=== PATIENT | female | born 1970 | race Caucasian/White ===

== ENCOUNTER → 2018-06-30 | Outpatient (CLI) | payer BC ==
--- NOTE | 2018-06-30 12:03 | US ---
EXAMINATION TYPE: US thyroid st tissue head/neck DATE OF EXAM: 06/30/2018 COMPARISON: NONE CLINICAL HISTORY: E04.0 GOITER,SIMPLE. Goiter GLAND SIZE: Right Lobe: 5.5 x 1.9 x 2.2 cm Overall Parenchyma: heterogenous Left Lobe: 5.4 x 1.6 x 2.1 cm Overall Parenchyma: heterogeneous Isthmus Thickness: 0.4 cm NODULES RIGHT: # of nodules measured on right: 1 1. 0.3 X 0.2 x 0.3 cm calcified nodule at the lower pole with well-defined margins; . This nodule is wider than tall and shows no intranodular vascularity. Prior size: 0.3 LEFT: # of nodules measured on left: 1 1. 0.9 X 0.8 x 0.9 cm mixed nodule at the lateral pole with well-defined margins; . This nodule i s wider than tall and shows no intranodular vascularity. Lesion shows a generally hypoechoic focus wi th echogenic area, findings may represent colloid cyst and shows a similar appearance to prior exam. 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 Heterogeneous gland may represent a nodu le goiter.
== END | disposition home or self-care (01) ==
LOC: RADUSWWP 09:10
PROVIDERS: ATTEND Internal Medicine
DX: E04.0 Nontoxic diffuse goiter (principal)
CPT/HCPCS: 76536; 84443

== ENCOUNTER → 2018-11-02 | Outpatient (CLI) | payer BC ==
[2018-11-02 16:33] LABS: Albumin 4.5 g/dL (3.80-4.90); Albumin/Globulin Ratio 1.88 (1.60-3.17); Anion Gap 8.2 mmol/L (4.00-12.00); Calcium 9.6 mg/dL (8.7-10.3); Carbon Dioxide 25.8 mmol/L (21.6-31.8); Globulin 2.4 g/dL (1.6-3.3); Potassium 5.2 mmol/L (3.5-5.5); Total Bilirubin 0.5 mg/dL (0.3-1.2); Total Protein 6.9 g/dL (6.2-8.2)
[2018-11-02 17:17] LABS: Hemoglobin A1C 6.5 % (4.0-6.0)
== END | disposition home or self-care (01) ==
LOC: LABWHC1 09:00
PROVIDERS: ATTEND Internal Medicine
DX: E11.9 Type 2 diabetes mellitus without complications (principal); E04.0 Nontoxic diffuse goiter
CPT/HCPCS: 36415; 80053; 80061; 82043; 82570; 83036; 84443

== ENCOUNTER → 2020-03-21 | Outpatient (CLI) | payer BC ==
[2020-03-21 18:15] LABS: Hemoglobin A1C 8.6 % (4.0-6.0)
[2020-03-21 18:52] LABS: African American GFR (CKD) 87.6 (60.0-200.0); Albumin 4.4 g/dL (3.80-4.90); Albumin/Globulin Ratio 1.91 (1.60-3.17); Anion Gap 9.9 mmol/L (4.00-12.00); BUN/Creat Ratio 16.67 Ratio (12.00-20.00); Calcium 9.6 mg/dL (8.7-10.3); Carbon Dioxide 27.1 mmol/L (21.6-31.8); Globulin 2.3 g/dL (1.6-3.3); Non-African American GFR(CKD) 75.6 (60.0-200.0); Potassium 4.7 mmol/L (3.5-5.5); Total Bilirubin 0.5 mg/dL (0.3-1.2); Total Protein 6.7 g/dL (6.2-8.2)
== END | disposition home or self-care (01) ==
LOC: LABWHC1 08:51
PROVIDERS: ATTEND Internal Medicine
DX: E11.9 Type 2 diabetes mellitus without complications (principal); E04.0 Nontoxic diffuse goiter
CPT/HCPCS: 36415; 80053; 82043; 82570; 83036; 84443

== ENCOUNTER 2020-03-25 18:37 | Emergency (ER) | payer BC ==
[2020-03-25 18:50] VITALS: RESP 18; TEMP 98.4
[2020-03-25 19:49] LABS: Basophils % (A) 0 %; Eosinophils # (A) 0.4 k/uL (0-0.7); Eosinophils % (A) 4 %; HCT 39.6 % (34.0-46.0); HGB 14.2 gm/dL (11.4-16.0); Lymphocytes # (A) 2.3 k/uL (1.0-4.8); Lymphocytes % (A) 27 %; MCH 32.3 pg (25.0-35.0); MCHC 35.8 g/dL (31.0-37.0); MCV 90.2 fL (80.0-100.0); Mean Platelet Volume 7.5; Monocytes # (A) 0.4 k/uL (0-1.0); Monocytes % (A) 4 %; Neutrophils # (A) 5.5 k/uL (1.3-7.7); Neutrophils % (A) 63 %; Platelet Count 218 k/uL (150-450); WBC 8.7 k/uL (3.8-10.6)
[2020-03-25 20:04] LABS: INR 0.9 (<1.2); Partial Thromboplastin Time 22.3 sec (22.0-30.0); Prothrombin Time 9.5 sec (9.0-12.0)
[2020-03-25 20:09] LABS: ALT 50 U/L (4-34); AST 32 U/L (14-36); African American GFR (CKD) >90 (>60 ml/min/1.73 sqM); Alkaline Phosphatase 80 U/L (38-126); Anion Gap 8 mmol/L; Blood Urea Nitrogen 11 mg/dL (7-17); Calcium 9.1 mg/dL (8.4-10.2); Carbon Dioxide 25 mmol/L (22-30); Chloride 102 mmol/L (98-107); Glucose 214 mg/dL (74-99); Lipase 141 U/L (23-300); Non-African American GFR(CKD) >90 (>60 ml/min/1.73 sqM); Sodium 135 mmol/L (137-145); Total Bilirubin 0.3 mg/dL (0.2-1.3); Total Protein 6.5 g/dL (6.3-8.2)
[2020-03-25 20:14] LABS: Appearance,Urine Clear (Clear); Bilirubin,Urine Negative (Negative); Blood,Urine Negative (Negative); Color,Urine Yellow; Glucose,Urine (UA) Negative (Negative); Ketones,Urine Negative (Negative); Leukocyte Esterase,Urine Negative (Negative); Nitrite,Urine Negative (Negative); Protein,Urine Negative (Negative); Specific Gravity,Urine 1.016 (1.001-1.035); Urobilinogen,Urine <2.0 mg/dL (<2.0)
--- NOTE | 2020-03-25 20:57 | CT ---
EXAMINATION TYPE: CT abdomen pelvis w con DATE OF EXAM: 03/25/2020 COMPARISON: None INDICATION: Abdominal pain, distention, bloating DLP: 1680.3 mGycm, Automated exposure control for dose reduction was used. CONTRAST: 100 mL of Isovue 300. Study performed without Oral Contrast TECHNIQUE: Axial images were obtained from above the diaphragm to the pubic rami in the axial plane a t 5 mm thick sections. Reconstructed images are reviewed on the computer in the coronal plane. FINDINGS: Limited CT sections are obtained the lung bases. The lung bases are clear. CT ABDOMEN: Liver: There is moderate fatty infiltration throughout the liver. There is a 1.2 cm area of increased contrast within the left lobe liver could be a hemangioma. Series 201 image 27. Punctate density may be in the anterior left lobe liver. Series 201 image 29. There is a triangular area of increased den sity within the right lobe liver. Series 201 image 37. A 1.4 cm enhancing areas within the left lobe liver. Series 201 image 37. Differential diagnosis would include preserved parenchymal tissue. Neopla sm, while unlikely, cannot be excluded. Spleen: Normal Pancreas: Normal Adrenal glands: The adrenal glands are normal. Gallbladder: Surgically absent Kidneys: No masses are evident. No hydronephrosis is present. No cysts are present. Delayed images were obtained through the kidneys, which remain unremarkable. Aorta: Vascular calcification is within the aorta. Inferior vena cava: Normal. CT PELVIS: Loops of bowel within the abdomen and pelvis are normal. Study is without oral contrast limiting bowel evaluation. Debris is at the level the rectum. Appendix: Normal as visualized. Urinary bladder: Normal. Genitourinary structures: Uterus is normal. Adnexal regions have small follicles. Right ovary may con tain a 1.5 cm cyst. No free fluid is within the pelvis. Osseous structures: No suspicious lytic or sclerotic lesions. IMPRESSIONS: 1. Diffuse fatty infiltration throughout the liver. There are couple of areas of enhancement are pre served. Preserved hepatic parenchymal tissue is favored. Consider correlation with ultrasound. Mass w hile considered less likely is not excluded. 2. No definite etiology for abdominal pain and distention.
--- NOTE | 2020-03-25 22:14 | ED ---
Abdominal Pain HPI - General Chief Complaint: Abdominal Pain Stated Complaint: abd pain/swelling Time Seen by Provider: 03/25/20 18:45 Source: patient Mode of arrival: ambulatory Limitations: no limitations - History of Present Illness Initial Comments: Patient is a 49-year-old female presents emergency room with reported right upper quadrant abdominal pain. She is status post cholecystectomy. States the pain has been present for the past several weeks however is getting worse. She reports to a distended sensation. Pain is worse with eating. By mouth in take has been decreased. Admits to associated nausea without vomiting. Denies any fevers or chills. No cough or hemoptysis. No shortness of breath. Denies ripping or tearing sensation to her back. Denies any changes in her bowel or bladder habits. No concern for . She's her primary care physician who recommended she have an ultrasound. Patient states it is scheduled for the however she can make the pain is getting more severe. She does believe that secondary to her medications. Reports that she took herself off of her metformin for hasn't had any improvement in her symptoms. No other alleviating, precipitating or modifying factors - Related Data Home Medications Medication Instructions Recorded Confirmed sitaGLIPtin PHOS/metFORMIN HCL 1 tab PO DAILY 11/04/18 11/04/18 [Janumet Xr 100-1,000 mg Tablet] Allergies Allergy/AdvReac Type Severity Reaction Status Date / Time narcotics AdvReac vomiting/he Uncoded 03/25/20 18:47 adaches Review of Systems ROS Statement: Those systems with pertinent positive or pertinent negative responses have been documented in the HPI. ROS Other: All systems not noted in ROS Statement are negative. Past Medical History Past Medical History: Diabetes Mellitus Additional Past Medical History / Comment(s): Hx melanoma/leg, History of Any Multi-Drug Resistant Organisms: None Reported Past Surgical History: Cholecystectomy Additional Past Surgical History / Comment(s): melanoma surgery/leg, Past Anesthesia/Blood Transfusion Reactions: No Reported Reaction Past Psychological History: No Psychological Hx Reported Smoking Status: Never smoker Past Alcohol Use History: Rare Past Drug Use History: None Reported General Exam Limitations: no limitations General appearance: alert, in no apparent distress Head exam: Present: atraumatic, normocephalic, normal inspection Eye exam: Present: normal appearance, PERRL, EOMI. Absent: scleral icterus, conjunctival injection, periorbital swelling ENT exam: Present: normal exam, mucous membranes moist Neck exam: Present: normal inspection. Absent: tenderness, meningismus, lymphadenopathy Respiratory exam: Present: normal lung sounds bilaterally. Absent: respiratory distress, wheezes, rales, rhonchi, stridor Cardiovascular Exam: Present: regular rate, normal rhythm, normal heart sounds. Absent: systolic murmur, diastolic murmur, rubs, gallop, clicks GI/Abdominal exam: Present: soft, tenderness (epigastric), normal bowel sounds. Absent: distended, guarding, rebound, rigid Extremities exam: Present: normal inspection, full ROM, normal capillary refill. Absent: tenderness, pedal edema, joint swelling, calf tenderness Back exam: Present: normal inspection Neurological exam: Present: alert, oriented X3, CN II-XII intact Psychiatric exam: Present: normal affect, normal mood Skin exam: Present: warm, dry, intact, normal color. Absent: rash Course Vital Signs 03/25/20 03/25/20 18:43 22:28 Temperature 98.4 F Pulse Rate 55 L 69 Respiratory 18 18 Rate Blood Pressure 142/84 130/91 O2 Sat by Pulse 96 97 Oximetry Medical Decision Making - Medical Decision Making Upon arrival the patient is placed into room 5. A thorough history and physical exam was performed. Laboratory studies were conducted the patient had a CT for abdomen and pelvis performed. Laboratory studies are remarkable for an ALT of 50. Patient is status post cholecystectomy and therefore CT is performed which demonstrates diffuse fatty infiltration of the liver. I discussed results of th e patient. She is refusing anything for pain or nausea at this time. I discussed possible treatment with Carafate however the patient refuses this medication stating that she would rather just "tough it out". Patient will be discharged home and is to follow-up with GI. Return to the emergency room for any new or worsening symptoms. The patient agreed to this. She was discharged home in stable condition. - Lab Data Result diagrams: 03/25/20 19:03/25/20: Lab Results 03/25/20 03/25/20 03/25/20 Range/Units 19: 19: 19: WBC 8.7 (3.8-10.6) k/uL RBC 4.40 (3.80-5.40) m/uL Hgb 14.2 (11.4-16.0) gm/dL Hct 39.6 (34.0-46.0) % MCV 90.2 (80.0-100.0) fL MCH 32.3 (25.0-35.0) pg MCHC 35.8 (31.0-37.0) g/dL RDW 13.0 (11.5-15.5) % Plt Count 218 (150-450) k/uL Neutrophils % 63 % Lymphocytes % 27 % Monocytes % 4 % Eosinophils % 4 % Basophils % 0 % Neutrophils # 5.5 (1.3-7.7) k/uL Lymphocytes # 2.3 (1.0-4.8) k/uL Monocytes # 0.4 (0-1.0) k/uL Eosinophils # 0.4 (0-0.7) k/uL Basophils # 0.0 (0-0.2) k/uL PT 9.5 (9.0-12.0) sec INR 0.9 (<1.2) APTT 22.3 (22.0-30.0) sec Sodium (137-145) mmol/L Potassium (3.5-5.1) mmol/L Chloride (98-107) mmol/L Carbon Dioxide (22-30) mmol/L Anion Gap mmol/L BUN (7-17) mg/dL Creatinine (0.52-1.04) mg/dL Est GFR (CKD-EPI)AfAm (>60 ml/min/1.73 sqM) Est GFR (CKD-EPI)NonAf (>60 ml/min/1.73 sqM) Glucose (74-99) mg/dL Plasma Lactic Acid Raymon (0.7-2.0) mmol/L Calcium (8.4-10.2) mg/dL Total Bilirubin (0.2-1.3) mg/dL AST (14-36) U/L ALT (4-34) U/L Alkaline Phosphatase (38-126) U/L Total Protein (6.3-8.2) g/dL Albumin (3.5-5.0) g/dL Lipase (23-300) U/L Urine Color Yellow Urine Appearance Clear (Clear) Urine pH 7.0 (5.0-8.0) Ur Specific Creighton 1.016 (1.001-1.035) Urine Protein Negative (Negative) Urine Glucose (UA) Negative (Negative) Urine Ketones Negative (Negative) Urine Blood Negative (Negative) Urine Nitrite Negative (Negative) Urine Bilirubin Negative (Negative) Urine Urobilinogen <2.0 (<2.0) mg/dL Ur Leukocyte Esterase Negative (Negative) 03/25/20 03/25/20 Range/Units 19:29 19:29 WBC (3.8-10.6) k/uL RBC (3.80-5.40) m/uL Hgb (11.4-16.0) gm/dL Hct (34.0-46.0) % MCV (80.0-100.0) fL MCH (25.0-35.0) pg MCHC (31.0-37.0) g/dL RDW (11.5-15.5) % Plt Count (150-450) k/uL Neutrophils % % Lymphocytes % % Monocytes % % Eosinophils % % Basophils % % Neutrophils # (1.3-7.7) k/uL Lymphocytes # (1.0-4.8) k/uL Monocytes # (0-1.0) k/uL Eosinophils # (0-0.7) k/uL Basophils # (0-0.2) k/uL PT (9.0-12.0) sec INR (<1.2) APTT (22.0-30.0) sec Sodium 135 L (137-145) mmol/L Potassium 4.0 (3.5-5.1) mmol/L Chloride 102 (98-107) mmol/L Carbon Dioxide 25 (22-30) mmol/L Anion Gap 8 mmol/L BUN 11 (7-17) mg/dL Creatinine 0.68 (0.52-1.04) mg/dL Est GFR (CKD-EPI)AfAm >90 (>60 ml/min/1.73 sqM) Est GFR (CKD-EPI)NonAf >90 (>60 ml/min/1.73 sqM) Glucose 214 H (74-99) mg/dL Plasma Lactic Acid Raymon 1.9 (0.7-2.0) mmol/L Calcium 9.1 (8.4-10.2) mg/dL Total Bilirubin 0.3 (0.2-1.3) mg/dL AST 32 (14-36) U/L ALT 50 H (4-34) U/L Alkaline Phosphatase 80 (38-126) U/L Total Protein 6.5 (6.3-8.2) g/dL Albumin 4.0 (3.5-5.0) g/dL Lipase 141 (23-300) U/L Urine Color Urine Appearance (Clear) Urine pH (5.0-8.0) Ur Specific Creighton (1.001-1.035) Urine Protein (Negative) Urine Glucose (UA) (Negative) Urine Ketones (Negative) Urine Blood (Negative) Urine Nitrite (Negative) Urine Bilirubin (Negative) Urine Urobilinogen (<2.0) mg/dL Ur Leukocyte Esterase (Negative) - EKG Data EKG Comments: EKG demonstrates normal sinus rhythm with a ventricular rate of 74. TN interval 154. QRS 80. QTC of 437. Inverted T-wave in lead V2 and V3. No acute ST segment elevations Disposition Clinical Impression: Abdominal pain Disposition: HOME SELF-CARE Condition: Stable Instructions (If sedation given, give patient instructions): Abdominal Pain (ED) Additional Instructions: Please make an appointment with Dr. Ji for further evaluation. I do recommend an EGD. Return to the emergency department for any new or worsening symptoms Is patient prescribed a controlled substance at d/c from ED?: No Referrals: Rosendo Couch III, MD [Primary Care Provider] - 1-2 days Alvaro Ji MD [STAFF PHYSICIAN] - 1-2 days Time of Disposition: 22:14
[2020-03-25 22:29] VITALS: BP 130/91; PULSE 69
== END 2020-03-25 22:34 | disposition home or self-care (01) ==
LOC: EC 18:37
DX: R10.9 Unspecified abdominal pain (principal); R10.11 Right upper quadrant pain; R11.0 Nausea; R14.0 Abdominal distension (gaseous); K76.0 Fatty (change of) liver, not elsewhere classified; E11.9 Type 2 diabetes mellitus without complications; Z79.84 Long term (current) use of oral hypoglycemic drugs; Z88.5 Allergy status to narcotic agent; Z90.49 Acquired absence of other specified parts of digestive tract; Z85.820 Personal history of malignant melanoma of skin
CPT/HCPCS: 36415; 93005; 80053; 83605; 83690; 85025; 85610; 85730; 81003; 74177; 99284; Q9967

== ENCOUNTER → 2020-04-10 | Outpatient (CLI) | payer BC ==
--- NOTE | 2020-04-10 07:53 | US ---
EXAMINATION TYPE: US abdomen complete DATE OF EXAM: 04/10/2020 COMPARISON: CT March 25, 2020 CLINICAL HISTORY: R10.11 RUQ Pain. Pain exam limited due to body habitus EXAM MEASUREMENTS: Liver Length: 18 cm Gallbladder Wall: Surgically absent cm CBD: .6 cm Spleen: 11.5 cm Right Kidney: 11.4 x 4.8 x 5.6 cm Left Kidney: 10.0 x 6.0 x 4.8 cm Pancreas: Obscured by bowel gas Liver: Upper limits increased attenuation Gallbladder: Surgically absent Evidence for sonographic Walters's sign: No CBD: wnl Spleen: wnl Right Kidney: wnl Left Kidney: wnl Upper IVC: limited Abd Aorta: wnl The visualized liver is markedly heterogeneously hyperechoic. Evaluation for focal mass is suboptimal due to the marked heterogeneity. Liver measures upper limits of normal in size. No intrahepatic duct al dilatation. The intrahepatic portion of the IVC and visualized abdominal aorta are within normal l imits. There is no evidence of shadowing mobile cholelithiasis. Common bile duct is unremarkable. S uboptimal Evaluation the pancreas on images saved secondary to overlying bowel gas per technologist. The spleen is unremarkable. Kidneys are symmetric and free of hydronephrosis. No renal lesions are seen. IMPRESSION: Borderline mild hepatomegaly. Marked fatty infiltration of liver redemonstrated. No acute findings are seen.
== END | disposition home or self-care (01) ==
LOC: RADUSWWP 07:09
PROVIDERS: ATTEND Family Medicine
DX: K76.0 Fatty (change of) liver, not elsewhere classified (principal); R16.0 Hepatomegaly, not elsewhere classified
CPT/HCPCS: 76700

== ENCOUNTER 2020-05-26 06:35 | Day surgery (SDC) | payer BC ==
[2020-05-24 15:58] VITALS: BMI 31.1
[~2020-05-26 06:35] MED LIST: LACTATED RINGERS 1,000 ML IV SCH; LIDOCAINE 1% (10MG/ML) FOR IV START INTRADERMA PRN
[2020-05-26 07:07] VITALS: TEMP 97.6
[2020-05-26] MEDS ORDERED: LIDOCAINE 1% INJ 10MG/ML (20 ML MDV) ONE (07:21)
[2020-05-26] MEDS ORDERED: PROPOFOL 10 MG/ML 20 ML VIAL IV ONE (07:21)
--- NOTE | 2020-05-26 07:38 | P.PCN ---
Date of Procedure: 05/26/20 Procedure(s) Performed: BRIEF HISTORY: Patient is a 50-year-old, pleasant, white female scheduled for an upper endoscopy as a part of evaluation of epigastric discomfort and intermittent nausea and dyspeptic symptoms on and off for the last few months duration. Symptoms began after she was started on metformin and hence discontinued the medication. Recently was given a trial of Prilosec 20 mg daily for a month and symptoms are completely resolved.. PROCEDURE PERFORMED: Esophagogastroduodenoscopy with biopsy. PREOPERATIVE DIAGNOSIS: Epigastric discomfort/intermittent nausea vomiting. IV sedation per anesthesia. PROCEDURE: After informed consent was obtained, the patient was brought into the endoscopy unit. IV sedation was administered by Anesthesia under continuous monitoring. Initially the Olympus GIF-140 video endoscope was inserted into the mouth. Esophagus intubated without any difficulty. It was gradually advanced into the stomach and duodenum and carefully examined. The bulb and the second part of the duodenum appeared normal. The scope at this time was withdrawn to the stomach, adequately insufflated with air, and upon careful examination, mucosa of the antrum, had mild ascites and biopsies were done from this area. The body, cardia and the fundus appeared normal. The scope was then withdrawn into the esophagus. The GE junction was located at 39 cm from the incisors. The esophagus appeared normal. There were no erosions or ulcerations seen , biopsies were done from the distal esophagus and the patient tolerated the procedure well. IMPRESSION: 1. Mild antral gastritis. 2. No evidence of esophagitis or peptic ulcer disease. RECOMMENDATIONS: The findings of this examination were discussed with the patient is well as her family. She was advised to follow with the biopsy results. If she has recurrent symptoms she was advised to use [id number] omeprazole as needed. Follow up in office as needed.
[2020-05-26 07:54] VITALS: BP 144/83; PULSE 67; RESP 18
[2020-05-30 12:00] LABS: Glucose,Whole Blood 207 mg/dL (75-99)
== END 2020-05-26 08:34 | disposition home or self-care (01) ==
LOC: ORWHC2ENDO 06:35
PROVIDERS: ATTEND Internal Medicine Gastroenterology
DX: K29.50 Unspecified chronic gastritis without bleeding (principal); E11.9 Type 2 diabetes mellitus without complications; Z88.5 Allergy status to narcotic agent; Z79.899 Other long term (current) drug therapy
CPT/HCPCS: 81025; 88305; 43239; J2001; J2704

== ENCOUNTER → 2020-07-07 | Outpatient (CLI) | payer BC ==
--- NOTE | 2020-07-08 04:53 | MR ---
EXAMINATION TYPE: MR liver wo/w con DATE OF EXAM: 07/07/2020 COMPARISON: HISTORY: Abdominal pain, abnormal CT/US CONTRAST: Standard multiplanar, multisequence MRI departmental protocol utilizing 10 mL intravenous Gadavist ga dolinium contrast. There is somewhat rounded low signal 13 mm focus in the superior left lobe of the liver on the T2 claudia ges. There is similar 14 mm focus in the posterior left lobe of the liver. There is similar 14 mm foc us subcapsular lateral right lobe of the liver. There is a linear area of decreased signal extending from the kylie hepatis to the lateral aspect of the inferior right lobe of the liver on the T2 images . These areas show no pathologic enhancement. These correspond to higher density areas in the liver o n the CT scan of 03/25/2020 and are not changed in size. The bile ducts are not dilated. Spleen is intact. Kidneys have normal size and contour. There is no h ydronephrosis. There is no adrenal mass. There is no retroperitoneal adenopathy. There is no evidence of pancreatic mass. There is no ascites. There is no pleural effusion. IMPRESSION: Nonenhancing foci in the liver as described above with the largest focus is linear density extending from the kylie hepatis to the inferior lateral right lobe of the liver are not changed compared to t he CT scan of 03/25/2020 and I think are related to areas of sparing of fatty infiltration. No suspici ous liver mass identified.
== END | disposition home or self-care (01) ==
LOC: RADMRIMAIN 20:53
PROVIDERS: ATTEND Nurse Practitioner
DX: R93.2 Abnormal findings on diagnostic imaging of liver and biliary tract (principal)
CPT/HCPCS: 74183; A9585

== ENCOUNTER → 2020-11-08 | Outpatient (CLI) | payer BC ==
[2020-11-09 02:03] LABS: Hemoglobin A1C 7.2 % (4.0-6.0)
== END | disposition home or self-care (01) ==
LOC: LABWHC1 14:06
PROVIDERS: ATTEND Internal Medicine
DX: E11.65 Type 2 diabetes mellitus with hyperglycemia (principal)
CPT/HCPCS: 36415; 83036

== ENCOUNTER → 2020-11-10 | Outpatient (CLI) | payer BC ==
--- NOTE | 2020-11-10 13:16 | US ---
EXAMINATION TYPE: US thyroid st tissue head/neck DATE OF EXAM: 11/10/2020 COMPARISON: 06/30/2018 CLINICAL HISTORY: 50-year-old female E04.0 SIMPLE GOITER. Follow-up exam, no issues TECHNIQUE: Multiple sonographic images of the thyroid gland are obtained. FINDINGS: GLAND SIZE: Right Lobe: 5.9 x 1.5 x 1.8cm Overall Parenchyma: heterogenous Left Lobe: 5.2 x 1.9 x 1.7 cm Overall Parenchyma: heterogeneous Isthmus Thickness: 0.4 cm NODULES RIGHT: # of nodules measured on right: small mid calcification seen, noted previously LEFT: # of nodules measured on left: 1 1. 0.9 X 0.8 x 0.9 cm, upper to mid pole round heterogeneous hypoechoic nodule, which has the same width and height, with smooth margins, with echogenic foci. (TR4 nodule) Prior size: 0.9 x 0.8 x 0.9 cm ISTHMUS: # of nodules measured in the isthmus: 0 Bilateral neck scanned, no evidence of lymphadenopathy. IMPRESSION: 1. Mild thyromegaly. 2. Solitary 9 mm TR4 nodule at the left upper to mid pole remains unchanged from 2018.
== END | disposition home or self-care (01) ==
LOC: RADUSWWP 07:40
PROVIDERS: ATTEND Internal Medicine
DX: E04.0 Nontoxic diffuse goiter (principal); E01.0 Iodine-deficiency related diffuse (endemic) goiter
CPT/HCPCS: 76536

== ENCOUNTER → 2022-07-25 | Outpatient (CLI) | payer BC ==
[2022-07-25 20:05] LABS: ALT 37 U/L (8-44); AST 18 U/L (13-35); African American GFR (CKD) 98.9 (60.0-200.0); Albumin 4.7 g/dL (3.8-4.9); Albumin/Globulin Ratio 1.96 (1.60-3.17); Alkaline Phosphatase 80 U/L (41-126); Blood Urea Nitrogen 16.4 mg/dL (9.0-27.0); Calcium 9.9 mg/dL (8.7-10.3); Carbon Dioxide 24.8 mmol/L (20.0-27.5); Chloride 104 mmol/L (96-109); Chol/HDL Ratio 5.23 Ratio; Globulin 2.4 g/dL (1.6-3.3); Glucose 152 mg/dL (70-110); LDL Cholesterol,Calculated 178.4 mg/dL (0.0-131.0); Non-African American GFR(CKD) 85.4 (60.0-200.0); Potassium 4.7 mmol/L (3.5-5.5); Sodium 141 mmol/L (135-145); Total Protein 7.1 g/dL (6.2-8.2)
== END | disposition home or self-care (01) ==
LOC: LABWHC1 11:07
PROVIDERS: ATTEND Physical Therapist
DX: E04.0 Nontoxic diffuse goiter (principal); E11.65 Type 2 diabetes mellitus with hyperglycemia
CPT/HCPCS: 36415; 80053; 80061; 82570; 84443

== ENCOUNTER → 2022-08-12 | Outpatient (CLI) | payer BC ==
[2022-08-12 14:56] LABS: Chol/HDL Ratio 4.56 Ratio; LDL Cholesterol,Calculated 152.4 mg/dL (0.0-131.0)
== END | disposition home or self-care (01) ==
LOC: LABWHC1 08:55
DX: E04.0 Nontoxic diffuse goiter (principal); E11.65 Type 2 diabetes mellitus with hyperglycemia
CPT/HCPCS: 36415; 80061

== ENCOUNTER → 2023-06-16 | Outpatient (CLI) | payer BC ==
[2023-06-16 16:06] LABS: ALT 36 U/L (8-44); AST 18 U/L (13-35); Albumin 4.3 g/dL (3.8-4.9); Albumin/Globulin Ratio 1.79 Ratio (1.60-3.17); Alkaline Phosphatase 65 U/L (41-126); BUN/Creat Ratio 17.75 Ratio (12.00-20.00); Blood Urea Nitrogen 14.2 mg/dL (9.0-27.0); Calcium 9.5 mg/dL (8.7-10.3); Carbon Dioxide 24.3 mmol/L (21.6-31.8); Chloride 103 mmol/L (96-109); Globulin 2.4 g/dL (1.6-3.3); Glucose 146 mg/dL (70-110); Potassium 4.3 mmol/L (3.5-5.5); Sodium 139 mmol/L (135-145); Total Bilirubin 0.4 mg/dL (0.3-1.2); Total Protein 6.7 g/dL (6.2-8.2)
[2023-06-16 18:35] LABS: Microalbumin Creatinine Ratio <15 mg/g Cr (0-30); Urine Creatinine 79.7 mg/dL (28.0-217.0)
== END | disposition home or self-care (01) ==
LOC: LABWHC1 07:58
PROVIDERS: ATTEND Internal Medicine
DX: E11.65 Type 2 diabetes mellitus with hyperglycemia (principal); E04.0 Nontoxic diffuse goiter
CPT/HCPCS: 36415; 80053; 82043; 82570; 83036; 84443

== ENCOUNTER → 2024-01-21 | Outpatient (CLI) | payer BC ==
[2024-01-21 15:54] LABS: Chol/HDL Ratio 4.67 Ratio; LDL Cholesterol,Calculated 166.9 mg/dL (0.0-131.0)
== END | disposition home or self-care (01) ==
LOC: LABWHC1 08:28
PROVIDERS: ATTEND Internal Medicine
DX: E78.5 Hyperlipidemia, unspecified (principal); E11.65 Type 2 diabetes mellitus with hyperglycemia
CPT/HCPCS: 36415; 80061; 83036

== ENCOUNTER → 2024-01-30 | Outpatient (CLI) | payer BC ==
--- NOTE | 2024-01-30 15:59 | US ---
EXAMINATION TYPE: US thyroid st tissue head/neck DATE OF EXAM: 01/30/2024 COMPARISON: Thyroid ultrasound 11/10/2020, 06/30/2018, 06/15/2015. CLINICAL INDICATION: Female, 53 years old with history of E04.0 NONTOXIC DIFFUSE GOITER; thyroid nodu le GLAND SIZE: Right Lobe: 5.9 x 1.3 x 2.3 cm Overall Parenchyma: heterogeneous Left Lobe: 5.6 x 1.7 x 2.0 cm Overall Parenchyma: heterogeneous Isthmus Thickness: 0.4 cm NODULES RIGHT: # of nodules measured on right: 0 LEFT: # of nodules measured on left: 1 1. .8 X .6 x .7 cm, upper , solid or almost completely solid, hyperechoic nodule, which is wider th an tall, with smooth margins, with echogenic foci. Stable. TR 4. Prior size: .9 x .8 x .9 cm ISTHMUS: # of nodules measured in the isthmus: 0 Bilateral neck scanned, no evidence of lymphadenopathy. IMPRESSION: Enlarged thyroid gland with stable subcentimeter left thyroid lobe TR 4 nodule. No new thyroid nodule s identified.
== END | disposition home or self-care (01) ==
LOC: RADUSWWP 14:30
PROVIDERS: ATTEND Internal Medicine
DX: E04.1 Nontoxic single thyroid nodule (principal)
CPT/HCPCS: 76536

== ENCOUNTER → 2024-05-03 | Outpatient (CLI) | payer BC ==
[2024-05-03 11:30] LABS: Microalbumin Creatinine Ratio <15 mg/g Cr (0-30); Urine Creatinine 82.5 mg/dL (28.0-217.0)
[2024-05-03 11:37] LABS: ALT 38 U/L (8-44); AST 21 U/L (13-35); Albumin 4.5 g/dL (3.8-4.9); Albumin/Globulin Ratio 1.88 Ratio (1.60-3.17); Alkaline Phosphatase 77 U/L (41-126); Calcium 9.4 mg/dL (8.7-10.3); Carbon Dioxide 25.5 mmol/L (21.6-31.8); Chloride 104 mmol/L (96-109); Globulin 2.4 g/dL (1.6-3.3); Glucose 191 mg/dL (70-110); Potassium 4.3 mmol/L (3.5-5.5); Sodium 141 mmol/L (135-145); Total Bilirubin 0.5 mg/dL (0.3-1.2); Total Protein 6.9 g/dL (6.2-8.2)
== END | disposition home or self-care (01) ==
LOC: LABWHC1 08:22
PROVIDERS: ATTEND Internal Medicine
DX: E11.65 Type 2 diabetes mellitus with hyperglycemia (principal)
CPT/HCPCS: 36415; 80053; 82043; 82570; 83036; 84443